=== PATIENT | female | born 1990 | race Caucasian/White ===

== ENCOUNTER 2018-01-21 05:50 | Inpatient (IN) ==
[2018-01-21 07:27] LABS: Baso % (Auto) 0.2 % (0.0-2.0); Eos # (Auto) 0.1 th/mm3 (0.0-0.4); Eos % (Auto) 1.1 % (0.0-4.0); Hematocrit 34.8 % (35.0-46.0); Hemoglobin 12.2 gm/dL (11.6-15.3); Lymph # (Auto) 1.5 th/mm3 (1.0-4.8); Lymph % (Auto) 18.9 % (9.0-44.0); Mean Corpuscular HGB Conc 35.1 % (32.0-36.0); Mean Corpuscular Hemoglobin 31.9 pg (27.0-34.0); Mean Corpuscular Volume 90.9 fL (80.0-100.0); Mean Platelet Volume 8.2 fL (7.0-11.0); Mono # (Auto) 0.9 th/mm3 (0.0-0.9); Mono % (Auto) 10.8 % (0.0-8.0); Neut # (Auto) 5.6 th/mm3 (1.8-7.7); Platelet Count 200 th/mm3 (150-450); Red Blood Count 3.83 mil/mm3 (4.00-5.30); White Blood Count 8.1 th/mm3 (4.0-11.0)
[2018-01-21 07:34] LABS: Bacteria,Urine Occasional /hpf; Bilirubin,Urine Negative (Negative); Clarity,Urine Hazy (Clear); Color,Urine Yellow (Yellw/Straw); Glucose,Urine (UA) Negative (Negative); Leukocyte Esterase,Urine Negative (Negative); Mucus,Urine Few /lpf (Occasional); Nitrite,Urine Negative (Negative); Specific Gravity,Urine 1.017 (1.002-1.035); Squamous Epithelial Cell,Urine 1 /hpf (0-5); Urobilinogen,Urine 4 or Greater mg/dL (Less than 2)
[2018-01-21 07:57] LABS: Amphetamine Urine With Conf Neg (Neg); Benzodiazepine Urine With Conf Neg (Neg)
[2018-01-21] MEDS ORDERED: Naloxone Inj 0.4 MG/ML Vial IV.PUSH PRN (08:07)
[2018-01-21] MEDS ORDERED: fentaNYL Citrate Inj 100 MCG/2 ML Ampul IV.PUSH PRN ×2 (08:07)
[2018-01-21] MEDS ORDERED: Sod Chloride 0.9% Inj 1,000 ML IV.CONT PRN (08:07)
[2018-01-21] MEDS ORDERED: Sodium Chlor 0.9% Inj 500 ML IV.SIG PRN (08:07)
[2018-01-21] MEDS ORDERED: Citric Acid/Sodium Citrate Liq 30 ML UDC PO SCH (08:15)
[2018-01-21] MEDS ORDERED: Oxytocin 30 Units/500ml Premix 30 UNITS/500 ML BAG IV.SIG ONE (09:00)
--- NOTE | 2018-01-21 10:36 | P.HPOB ---
History of Present Illness Primary Care Physician: Jasmin Clark MD History of Present Illness: Patient is a 28-year-old G 2 P 0 at 41/0 who presents today for induction for postdates. She states she has had normal movement. Denies nausea, vomiting, fever, chills, abdominal pain, shortness of breath, changes in vision , headache, lightheadedness, dizziness, dysuria, hematuria, frequency, change in urine color/smell, change in bowel habits, large gushes of fluid. Notes some minor whitish discharge, normal for . No bloody discharge, abnormally colored or malodorous discharge. No other complaints today. History OB: Previous ectopic, denies current palpitations Medical: Asthma Surgical: Denies Family Father: Denies Mother: Denies Social EtOH: Denies Tobacco: Denies Drugs: Denies - Inpatient Certification I certify that the inpatient services were ordered in accordance with Medicare regulations governing the order. This includes certification that hospital inpatient services are reasonable and necessary and in the case of services not specified as inpatient-only under 42 CFR 419.22(n), that they are appropriately provided as inpatient services in accordance to with the 2-midnight benchmark under 43 CFR 412.3(e) Estimated Total Length of Stay (Days): 3 Plans for Post Hospital Care: Home Review of Systems Constitutional: Denies body ache(s), Denies chills, Denies weakness Eyes: Denies blind spots, Denies blurry vision, Denies bulging eyes, Denies change in vision, Denies itchy eyes Ears, Nose, Mouth, and Throat: Denies dizziness, Denies poor balance Cardiovascular: Denies chest pain, Denies lightheadedness, Denies shortness of breath, Denies slow heart rate Respiratory: Denies cough, Denies shortness of breath, Denies stridor, Denies wheezing Gastrointestinal: Denies change in bowel habits, Denies change in stools, Denies nausea, Denies vomiting Genitourinary: Denies abnormal vaginal bleeding, Denies painful urination, Denies vaginal discharge, Denies vaginal odor, Denies vaginal itching Musculoskeletal: Denies abnormal walking, Denies muscle weakness Skin/Breast: Denies skin ulcer, Denies sores Neurologic: Denies abnormal movements, Denies behavioral changes, Denies confusion, Denies headache(s) Psychiatric: Denies anxiety, Denies confusion, Denies depression Endocrine: Denies cold intolerance, Denies excessive sweating PMFSH - Travel History Recent Travel in the [place] Within the Last 8 Weeks: No Recent Travel Out of the Country Within the Last 8 Weeks: No - Immunization History Hx Influenza Vaccine This Season: No Medications and Allergies Active Medications: Active Medications Citric Acid/Sodium Citrate (Sodium Citrate/Citric Acid Liq) 30 ml PO PHLEBOTOMY PROGRAM COORDINATOR [facility] Stop: 01/25/18 08:14 Fentanyl Citrate (Fentanyl Inj) 100 mcg IV.PUSH Q1H PRN PRN Reason: PAIN SCALE 6 TO 10 Fentanyl Citrate (Fentanyl Inj) 50 mcg IV.PUSH Q1H PRN PRN Reason: Pain Scale 3 - 5 Lactated Ringer's (Lr 1000 Ml Inj) 1,000 mls @ 125 mls/hr IV.CONT .Q8H [facility] Last Admin: 01/21/18 07:05 Dose: 125 mls/hr Lactated Ringer's (Lr 1000 Ml Inj) 1,000 mls @ 3,000 mls/hr IV.SIG UNSCH PRN PRN Reason: compromise or epidural Sodium Chloride (Ns Inj) 500 mls @ 1,000 mls/hr IV.SIG UNSCH PRN PRN Reason: SEE LABEL COMMENTS Sodium Chloride (Ns Inj) 1,000 mls @ 100 mls/hr IV.CONT .Q10H PRN PRN Reason: SEE LABEL COMMENTS Lidocaine HCl (Xylocaine 1% Inj) 0.1 ml I-DERMAL PRN PRN PRN Reason: For IV start Stop: 01/24/18 08:06 Lidocaine HCl (Xylocaine 1% Inj) 10 ml INFILTRATN PRN PRN PRN Reason: For episiotomy repair Stop: 01/23/18 08:06 Mineral Oil (Muri-Lube Oil) 10 ml TOPICAL UNSCH PRN PRN Reason: PRN perineal massage Misoprostol (Cytotec) 25 mcg VAGINAL ONCE PRN PRN Reason: For cervical ripening Stop: 01/22/18 13:50 Naloxone HCl (Narcan Inj) 0.1 mg IV.PUSH Q2M PRN PRN Reason: for opiate reversal Allergies Allergy/AdvReac Type Severity Reaction Status Date / Time No Known Allergies Allergy Verified 12/31/17 21:55 Home Medications Medication Instructions Recorded Confirmed Type vit,[id number] 1 tab PO DAILY 01/21/18 01/21/18 History [PNV 29-1] Exam Vital signs: Vital Signs 01/21/18 06:30 01/21/18 08:16 01/21/18 09:16 Temperature 98.4 F Pulse Rate 68 56 L 52 L Respiratory Rate 18 Blood Pressure 118/70 120/71 114/63 01/21/18 10:01 Temperature Pulse Rate 52 L Respiratory Rate Blood Pressure 113/66 Intake & Output 01/20/18 01/21/18 01/21/18 18:59 06:59 18:59 Weight 89.811 kg Other: Weight On Admission 89.811 kg Narrative: GENERAL: Well-nourished, well-developed patient. SKIN: Warm and dry. HEAD: Normocephalic and atraumatic. EYES: No scleral icterus. No injection or drainage. ENT: No nasal drainage noted. Mucous membranes pink. Airway patent. NECK: Supple, trachea midline. No JVD. CARDIOVASCULAR: Regular rate and rhythm without murmurs, gallops, or rubs. RESPIRATORY: Breath sounds equal bilaterally. No accessory muscle use. ABDOMEN/GI: Abdomen soft, non-tender, bowel sounds present, no rebound, no guarding GENITOURINARY: Cervix: Posterior Dilatation: 1-2 Effacement: 70 Station: -2 Presentation: Vertex Membranes: Intact Uterine Contractions: Rare FHT's: Category: 1 Baseline: 140 Reactive: Yes Variability: Moderate Decels: None EXTREMITIES: No cyanosis or edema. BACK: Nontender without obvious deformity. No CVA tenderness. NEUROLOGICAL: Awake and alert. Motor and sensory grossly within normal limits. Five out of 5 muscle strength in all muscle groups. Normal speech. Results - Labs CBC & Chem 7: 01/21/18 07:05 Labs: Laboratory Results - last 24 hr 01/21/18 01/21/18 01/21/18 06:10 06:10 07:05 WBC 8.1 RBC 3.83 L Hgb 12.2 Hct 34.8 L MCV 90.9 MCH 31.9 MCHC 35.1 RDW 13.0 Plt Count 200 MPV 8.2 Neut % (Auto) 69.0 Lymph % (Auto) 18.9 [place] % (Auto) 10.8 H Eos % (Auto) 1.1 Baso % (Auto) 0.2 Neut # (Auto) 5.6 Lymph # (Auto) 1.5 [place] # (Auto) 0.9 Eos # (Auto) 0.1 Baso # (Auto) 0.0 WBC Differential . Differential Comment Auto diff final Urine Color Yellow Urine Clarity Hazy H Urine pH 6.0 Ur Specific [place] 1.017 Urine Protein Negative Urine Glucose (UA) Negative Urine Ketones Negative Urine Occult Blood Negative Urine Nitrate Negative Urine Bilirubin Negative Urine Urobilinogen 4 or greater Ur Leukocyte Esterase Negative Urine RBC 1 Urine WBC 8 H Ur Squamous Epith Cells 1 Urine Bacteria Occasional H Urine Mucus Few H Micro UA Comment Culture not ind Ur Microscopic Review Not Reportable Urine Culture Comments Culture not ind Urine Opiates Screen Neg Ur Barbiturates Screen Neg Ur Amphetamine Screen Neg U Benzodiazepines Scrn Neg Urine Cocaine Screen Neg U Cannabinoids Screen Neg Blood Type Blood Type Recheck Band and Hold 01/21/18 07:05 WBC RBC Hgb Hct MCV MCH MCHC RDW Plt Count MPV Neut % (Auto) Lymph % (Auto) [place] % (Auto) Eos % (Auto) Baso % (Auto) Neut # (Auto) Lymph # (Auto) [place] # (Auto) Eos # (Auto) Baso # (Auto) WBC Differential Differential Comment Urine Color Urine Clarity Urine pH Ur Specific [place] Urine Protein Urine Glucose (UA) Urine Ketones Urine Occult Blood Urine Nitrate Urine Bilirubin Urine Urobilinogen Ur Leukocyte Esterase Urine RBC Urine WBC Ur Squamous Epith Cells Urine Bacteria Urine Mucus Micro UA Comment Ur Microscopic Review Urine Culture Comments Urine Opiates Screen Ur Barbiturates Screen Ur Amphetamine Screen U Benzodiazepines Scrn Urine Cocaine Screen U Cannabinoids Screen Blood Type O Positive Blood Type Recheck Required Band and Hold Caprini VTE Risk Assessment Caprini VTE Risk Assessment: No/Low Risk (score <= 1) Caprini Risk Assessment Model: Point Value = 1 Point Value = 2 Point Value = 3 Point Value = 5 Age 41-60 Minor surgery BMI > 25 kg/m2 Swollen legs Varicose veins or History of unexplained or recurrent spontaneous Oral contraceptives or hormone replacement Sepsis (< 1 month) Serious lung disease, including pneumonia (< 1 month) Abnormal pulmonary function Acute myocardial infarction Congestive heart failure (< 1 month) History of inflammatory bowel disease Medical patient at bed rest Age 61-74 Arthroscopic surgery Major open surgery (> 45 min) Laparoscopic surgery (> 45 min) Malignancy Confined to bed (> 72 hours) Immobilizing plaster cast Central venous access Age >= 75 History of VTE Family history of VTE Factor V Leiden Prothrombin [id number] Lupus anticoagulant Anticardiolipin antibodies Elevated serum homocysteine Heparin-induced thrombocytopenia Other congenital or acquired thrombophilia Stroke (< 1 month) Elective arthroplasty Hip, pelvis, or leg fracture Acute spinal cord injury (< 1 month) Prophylaxis Regimen: Total Risk Factor Score Risk Level Prophylaxis Regimen 0-1 Low Early ambulation 2 Moderate Order ONE of the following: *Sequential Compression Device (SCD) *Heparin 5000 units SQ BID 3-4 Higher Order ONE of the following medications: *Heparin 5000 units SQ TID *Enoxaparin/Lovenox 40 mg SQ daily (WT < 150 kg, CrCl > 30 mL/min) *Enoxaparin/Lovenox 30 mg SQ daily (WT < 150 kg, CrCl > 10-29 mL/min) *Enoxaparin/Lovenox 30 mg SQ BID (WT < 150 kg, CrCl > 30 mL/min) AND/OR *Sequential Compression Device (SCD) 5 or more Highest Order ONE of the following medications: *Heparin 5000 units SQ TID (Preferred with Epidurals) *Enoxaparin/Lovenox 40 mg SQ daily (WT < 150 kg, CrCl > 30 mL/min) *Enoxaparin/Lovenox 30 mg SQ daily (WT < 150 kg, CrCl > 10-29 mL/min) *Enoxaparin/Lovenox 30 mg SQ BID (WT < 150 kg, CrCl > 30 mL/min) AND *Sequential Compression Device (SCD) Assessment and Plan - Diagnosis (1) 41 weeks gestation of Code(s): Z3A.41 - 41 weeks gestation of Status: Acute (2) Post-dates Code(s): O48.0 - Post-term Status: Acute - Plan 28-year-old at 41/0 presenting today for induction of labor due to postdates. -FHT category 1, reassuring -Cytotec every 4 hrs as needed -Expectant management D/W Dr. Saucedo
[2018-01-22] MEDS ORDERED: fentaNYL 2MCG-Bupiv 0.125% Epi 150 ML EPIDURAL ONE (05:32)
[2018-01-22] MEDS ORDERED: Lidocaine PF 1% Inj 5 ML Vial ONE (05:38)
[2018-01-22] MEDS ORDERED: Lidocaaine 1.5%/Epinephrine 1:200,000 PF Inj 5 ML Amp ONE (05:38)
[2018-01-22] MEDS ORDERED: fentaNYL 2MCG-Bupiv 0.125% Epi 150 ML EPIDURAL PRN (06:07)
[2018-01-22] MEDS ORDERED: fentaNYL Citrate Inj 100 MCG/2 ML Ampul EPIDURAL ONE (06:07)
[2018-01-22] MEDS ORDERED: Morphine Sulfate PF Inj 5 MG/10 ML Ampul ONE (06:15)
[2018-01-22] MEDS ORDERED: Oxytocin 30 Units/500ml Premix 30 UNITS/500 ML BAG IV.SIG ONE (07:12)
[2018-01-22] MEDS ORDERED: Acetaminophen 325 MG Tablet PO PRN (07:12)
--- NOTE | 2018-01-22 07:25 | P.OP ---
- Preoperative Diagnosis (1) Post-dates (2) Non-reassuring heart rate or rhythm affecting management of mother (3) Meconium in amniotic fluid affecting management of mother - Postoperative Diagnosis (1) Non-reassuring heart rate or rhythm affecting management of mother (2) Meconium in amniotic fluid affecting management of mother (3) Post-dates Date of procedure: 01/22/18 Procedure: Primary low transverse section Anesthesia: regional Surgeon: Liam Saucedo MD Estimated blood loss (mL): 500 IV fluids (mL): 1,000 Urine output (mL): 100 Pathology: other (Placenta sent to pathology) Operation and Findings: Postdates primiparous patient with Cytotec and induction after rupture of the membranes and internal monitors placed the fetus exhibited a nonreassuring heart rate tracing with tachycardia and minimal heart rate variability and at that time rupture membranes light to moderate meconium- stained fluid noted. It was felt that the combination of the category 2 strip as well as the meconium stained fluid at this fetus was not going to tolerate labor especially with the patient cervix only being 1-2 cm dilated. It is felt that she needed a section for delivery. Patient was taken operating room placed in supine position operative table after adequate epidural anesthesia was administered she was prepped and draped for abdominal surgery. A Pfannenstiel incision was made lower abdomen carried to fascia sharply the fascia incised laterally and then reflected off the rectus muscle. The peritoneal cavity was entered sharply at that time. And the incision in that peritoneum was extended superiorly and inferiorly. The bladder blade placed lower edge of the incision the visceral peritoneum reflected off the lower uterine segment and the bladder was reflected down in the placed behind the bladder blade. A transverse hysterotomy was made extended bluntly bilaterally and meconium stained fluid noted at that time. A male infant was delivered at 6:35 AM Apgars 4/8 cord gas pH 7.15 weight of baby 3845 gm . Baby was handed to waiting staff and. The cord gas was obtained as above cord blood was obtained and the placenta manually extracted without difficulty. The placenta then sent to pathology. The uterus was exteriorized and then cleaned of all remnants of membranes. The hysterotomy closed in a running layer of 0 chromic followed by imbricating suture of the same and hemostasis was achieved with that layer. The bladder was reapproximated using a running layer Vicryl. The uterus elevated ovaries and tubes noted to be normal, the blood was suctioned the cul-de-sac gutters and the uterus replaced the peritoneal cavity. The parietal peritoneum was closed running layer of 2-0 Vicryl. Muscle reapproximated with stick ties of chromic. And the fascia then closed in a running layer of 0 Vicryl. The space in the subcutaneous fat was closed in a running layer of 0 plain catgut and the skin then closed with 3-0 Monocryl subcuticular stitch. Pressure dressing applied. Estimate blood loss 500 cc. Sponge and needle correct x2 the patient taken to recovery in stable condition.
[2018-01-22 07:33] LABS: Cord Arterial Blood HCO3 20.9
[2018-01-22] MEDS ORDERED: Oxytocin 30 Units/500ml Premix 30 UNITS/500 ML BAG ONE (08:44)
[2018-01-22] MEDS ORDERED: Naloxone Inj 0.4 MG/ML Vial IV.PUSH PRN (10:07)
[2018-01-22] MEDS ORDERED: Oxytocin 30 Units/500ml Premix 30 UNITS/500 ML BAG IV.SIG PRN (12:12)
[2018-01-22] MEDS ORDERED: Zolpidem Tartrate 5 MG Tablet PO PRN (21:00)
[2018-01-23 05:54] LABS: Baso % (Auto) 0.1 % (0.0-2.0); Eos # (Auto) 0.1 th/mm3 (0.0-0.4); Eos % (Auto) 0.6 % (0.0-4.0); Hematocrit 25.3 % (35.0-46.0); Hemoglobin 8.8 gm/dL (11.6-15.3); Lymph # (Auto) 1.6 th/mm3 (1.0-4.8); Mean Corpuscular HGB Conc 34.8 % (32.0-36.0); Mean Corpuscular Hemoglobin 31.7 pg (27.0-34.0); Mean Corpuscular Volume 91.2 fL (80.0-100.0); Mean Platelet Volume 8.2 fL (7.0-11.0); Mono # (Auto) 1.3 th/mm3 (0.0-0.9); Mono % (Auto) 8.7 % (0.0-8.0); Neut % (Auto) 79.6 % (16.0-70.0); Platelet Count 162 th/mm3 (150-450); Red Blood Count 2.78 mil/mm3 (4.00-5.30)
--- NOTE | 2018-01-23 08:49 | P.PNOB ---
Subjective Post op day: 1 Interval history: Postoperative day #1 AFVSS overnight. Incision not draining. Decreased lochia. Denies dysuria. No breast tenderness. Appetite good. No nausea or vomiting. Negative flatus/bowel movement. Ambulating well. Denies calf pain or shortness of breath. Otherwise, she is doing well this morning and has no other complaints. Objective Vital Signs/I&O: Vital Signs 01/22/18 08:48 01/22/18 09:20 01/22/18 14:20 Temperature 97.6 F 98.1 F Pulse Rate 81 52 L Respiratory Rate Blood Pressure 101/56 L 111/66 01/22/18 20:23 01/22/18 23:46 01/23/18 04:05 Temperature 98.4 F 98.3 F 97.6 F Pulse Rate 81 83 78 Respiratory Rate 18 Blood Pressure 97/67 L 91/56 L 87/59 L 01/23/18 08:05 Temperature 98.9 F Pulse Rate 84 Respiratory Rate 16 Blood Pressure 96/60 L Intake & Output 01/22/18 01/23/18 01/23/18 18:59 06:59 18:59 Intake Total 2099 / 2099 Balance 2099 / 2099 Intake: IV 2099 / 2099 LR 1000 mL Inj 1,000 ML @ 100 1600 / 1600 mls/hr IV.CONT .Q10H [facility] Rx#: [id number] Pitocin 30 Units/NS 500 ml 500 / 500 Premix 30 units In 500 ml @ 100 mls/hr IV.SIG ONCE ONE Rx#: [id number] Result Diagrams: 01/23/18 05:35 Objective Remarks: GENERAL: Well-nourished, well-developed patient. CARDIOVASCULAR: Regular rate and rhythm without murmurs, gallops, or rubs. RESPIRATORY: Breath sounds equal bilaterally. No accessory muscle use. ABDOMEN/GI: Abdomen soft, non-tender, bowel sounds present. Incision: Clean, dry and intact. Fundus: Firm, non-tender at umbilicus. GENITOURINARY: Light to moderate bleeding. EXTREMITIES: No cyanosis or edema, non-tender, without signs of DVT. Medications and IVs: Active Medications Acetaminophen (Tylenol) 650 mg PO Q6H PRN PRN Reason: PAIN SCALE 1 TO 2 Citric Acid/Sodium Citrate (Sodium Citrate/Citric Acid Liq) 30 ml PO HEAT TREATER HELPER [facility] Stop: 01/25/18 08:14 Diphenhydramine HCl (Benadryl) 50 mg PO Q6H PRN PRN Reason: MILD TO MODERATE ITCHING Stop: 01/23/18 10:06 Diphenhydramine HCl (Benadryl Inj) 25 mg IV.PUSH Q6H PRN PRN Reason: MILD TO MODERATE ITCHING Stop: 01/23/18 10:06 Diphtheria/Pertussis/Tetanus Vacc (Boostrix Vaccine Inj) 0.5 ml IM .ONCE ONE Stop: 01/23/18 16:01 Fentanyl Citrate (Fentanyl Inj) 100 mcg IV.PUSH Q1H PRN PRN Reason: PAIN SCALE 6 TO 10 Fentanyl Citrate (Fentanyl Inj) 50 mcg IV.PUSH Q1H PRN PRN Reason: Pain Scale 3 - 5 Lactated Ringer's (Lr 1000 Ml Inj) 1,000 mls @ 125 mls/hr IV.CONT .Q8H [facility] Last Admin: 01/23/18 03:15 Dose: Not Given Lactated Ringer's (Lr 1000 Ml Inj) 1,000 mls @ 3,000 mls/hr IV.SIG UNSCH PRN PRN Reason: compromise or epidural Sodium Chloride (Ns Inj) 500 mls @ 1,000 mls/hr IV.SIG UNSCH PRN PRN Reason: SEE LABEL COMMENTS Sodium Chloride (Ns Inj) 1,000 mls @ 100 mls/hr IV.CONT .Q10H PRN PRN Reason: SEE LABEL COMMENTS Fentanyl/Bupivacaine/Sodium Chlor (Fentanyl 2 Mcg-Bupiv 0.125% Epi) 150 mls @ 12 mls/hr EPIDURAL PRN PRN PRN Reason: for Labor Pain Oxytocin (Pitocin 30 Units/Ns 500 Ml Premix) 30 units in 500 mls @ 100 mls/hr IV.SIG UNSCH PRN PRN Reason: Heavy bleeding Ibuprofen (Motrin) 800 mg PO Q8H PRN PRN Reason: cramping Ketorolac Tromethamine (Toradol Inj) 30 mg IM Q6H PRN PRN Reason: SEE LABEL COMMENTS Lidocaine HCl (Xylocaine 1% Inj) 0.1 ml I-DERMAL PRN PRN PRN Reason: For IV start Stop: 01/24/18 08:06 Measles/Mumps/Rubella Vaccine Live (M-M-R Ii Vaccine Inj) 0.5 ml SQ .ONCE ONE Stop: 01/23/18 16:01 Mineral Oil (Muri-Lube Oil) 10 ml TOPICAL UNSCH PRN PRN Reason: PRN perineal massage Miscellaneous Information ([facility] [place] Nursing Information) 1 each OTHER UNSCH PRN PRN Reason: SEE LABEL COMMENTS Stop: 01/23/18 10:06 Miscellaneous Information ([facility] [place] Nursing Information) 1 each OTHER UNSCH PRN PRN Reason: SEE LABEL COMMENTS Stop: 01/23/18 10:06 Naloxone HCl (Narcan Inj) 0.1 mg IV.PUSH Q2M PRN PRN Reason: for opiate reversal Naloxone HCl (Narcan Inj) 0.4 mg IV.PUSH UNSCH PRN PRN Reason: SEE LABEL COMMENTS Stop: 01/23/18 10:06 Oxycodone/Acetaminophen (Percocet 5/325 Mg) 1 tab PO Q4H PRN PRN Reason: PAIN SCALE 3 TO 5 Oxycodone/Acetaminophen (Percocet 5/325 Mg) 2 tab PO Q4H PRN PRN Reason: PAIN SCALE 6 TO 10 Last Admin: 01/23/18 06:21 Dose: 2 tab Senna/Docusate Sodium (Jaycee-Colace) 2 tab PO Q12H PRN PRN Reason: CONSTIPATION Sodium Chloride (Ns Flush) 2 ml IV.FLUSH PRN PRN PRN Reason: FLUSH AFTER USING IV ACCESS Sodium Chloride (Ns Flush) 2 ml IV.FLUSH BID [facility] Last Admin: 01/23/18 03:14 Dose: 2 ml Zolpidem Tartrate (Ambien) 5 mg PO HS PRN PRN Reason: INSOMNIA Assessment and Plan - Diagnosis (1) 41 weeks gestation of Code(s): Z3A.41 - 41 weeks gestation of Status: Acute (2) Post-dates Code(s): O48.0 - Post-term Status: Acute - Plan 28y/o female who is POD#1 s/p CXN. -Continue routine care. -Percocet and Motrin PRN pain. -Encouraged OOB. Advised pelvic rest for 6 wks. Will need a f/u appt. in 1 wk for incision check. -Re: ctrl, she states she does not wish to go back on control, discussed risks and benefits of following delivery, patient expressed understanding. -D/c likely tomorrow wdw Dr. Clark
[2018-01-23] MEDS ORDERED: Measles/Mumps/Rubella Vaccine Inj 0.5 ML Vial SQ ONE (16:00)
[2018-01-23] MEDS ORDERED: Diphtheria/Tetanus/Pertussis Vaccine Inj 0.5 ML Syringe IM ONE (16:00)
[2018-01-23] MEDS: Senna/Docusate Sodium 8.6/50 MG Tablet PO PRN (20:02)
--- NOTE | 2018-01-24 09:52 | P.PNOB ---
Subjective Post op day: 2 Interval history: Ms Mcgowan had no acute events overnight. She is now POD#2. Her pain is controlled , but she has had no flatus or BM yet. She is urinating, ambulating and tolerating PO well. She has had 3 doses of randy-colace thus far. Lochia is about the same as a period with no clots. There is no report of drainage from her surgical wound. Pt is working to breastfeed and is deferring decision on contraception until after discharge from the hospital. ROS was negative. All of pt's questions were answered. Objective Vital Signs/I&O: Vital Signs 01/23/18 20:00 01/24/18 06:46 Temperature 98.3 F 98.1 F Pulse Rate 73 70 Respiratory Rate 18 16 Blood Pressure 106/59 L 115/76 Result Diagrams: 01/23/18 05:35 Objective Remarks: GENERAL: Well-nourished, well-developed patient in NAD. CARDIOVASCULAR: Regular rate and rhythm without murmurs, gallops, or rubs. RESPIRATORY: Breath sounds equal bilaterally. No accessory muscle use. ABDOMEN/GI: Abdomen soft, non-tender, bowel sounds present. Incision: Clean, dry and intact with dressing in place; dressing to be removed today. Fundus: Firm, non-tender at umbilicus. GENITOURINARY: Light to moderate bleeding. EXTREMITIES: No cyanosis or edema, non-tender, without signs of DVT. Medications and IVs: Active Medications Acetaminophen (Tylenol) 650 mg PO Q6H PRN PRN Reason: PAIN SCALE 1 TO 2 Citric Acid/Sodium Citrate (Sodium Citrate/Citric Acid Liq) 30 ml PO LINING STITCHER [facility] Stop: 01/25/18 08:14 Fentanyl Citrate (Fentanyl Inj) 100 mcg IV.PUSH Q1H PRN PRN Reason: PAIN SCALE 6 TO 10 Fentanyl Citrate (Fentanyl Inj) 50 mcg IV.PUSH Q1H PRN PRN Reason: Pain Scale 3 - 5 Lactated Ringer's (Lr 1000 Ml Inj) 1,000 mls @ 125 mls/hr IV.CONT .Q8H [facility] Last Admin: 01/23/18 03:15 Dose: Not Given Lactated Ringer's (Lr 1000 Ml Inj) 1,000 mls @ 3,000 mls/hr IV.SIG UNSCH PRN PRN Reason: compromise or epidural Sodium Chloride (Ns Inj) 500 mls @ 1,000 mls/hr IV.SIG UNSCH PRN PRN Reason: SEE LABEL COMMENTS Sodium Chloride (Ns Inj) 1,000 mls @ 100 mls/hr IV.CONT .Q10H PRN PRN Reason: SEE LABEL COMMENTS Fentanyl/Bupivacaine/Sodium Chlor (Fentanyl 2 Mcg-Bupiv 0.125% Epi) 150 mls @ 12 mls/hr EPIDURAL PRN PRN PRN Reason: for Labor Pain Oxytocin (Pitocin 30 Units/Ns 500 Ml Premix) 30 units in 500 mls @ 100 mls/hr IV.SIG UNSCH PRN PRN Reason: Heavy bleeding Ibuprofen (Motrin) 800 mg PO Q8H PRN PRN Reason: cramping Last Admin: 01/24/18 05:51 Dose: 800 mg Ketorolac Tromethamine (Toradol Inj) 30 mg IM Q6H PRN PRN Reason: SEE LABEL COMMENTS Mineral Oil (Muri-Lube Oil) 10 ml TOPICAL UNSCH PRN PRN Reason: PRN perineal massage Naloxone HCl (Narcan Inj) 0.1 mg IV.PUSH Q2M PRN PRN Reason: for opiate reversal Oxycodone/Acetaminophen (Percocet 5/325 Mg) 1 tab PO Q4H PRN PRN Reason: PAIN SCALE 3 TO 5 Oxycodone/Acetaminophen (Percocet 5/325 Mg) 2 tab PO Q4H PRN PRN Reason: PAIN SCALE 6 TO 10 Last Admin: 01/24/18 05:51 Dose: 2 tab Senna/Docusate Sodium (Randy-Colace) 2 tab PO Q12H PRN PRN Reason: CONSTIPATION Last Admin: 01/23/18 20:02 Dose: 2 tab Sodium Chloride (Ns Flush) 2 ml IV.FLUSH PRN PRN PRN Reason: FLUSH AFTER USING IV ACCESS Sodium Chloride (Ns Flush) 2 ml IV.FLUSH BID [facility] Last Admin: 01/23/18 20:05 Dose: 2 ml Zolpidem Tartrate (Ambien) 5 mg PO HS PRN PRN Reason: INSOMNIA Assessment and Plan - Diagnosis (1) 41 weeks gestation of Code(s): Z3A.41 - 41 weeks gestation of Status: Acute (2) Post-dates Code(s): O48.0 - Post-term Status: Acute - Plan 28y/o female who delivered at 41.0 weeks who is POD#2 s/p is progressing well with exception of no flatus or stooling yet. Physical exam is benign with AFVSS. 1. POD#2 from -Continue routine care. -Percocet and Motrin PRN pain. Advised pt to stay on top of pain control. -Encouraged OOB/ambulation. Advised pelvic rest for 6 wks. Will need a f/u appt. in 1 wk for incision check. Advised showers/no baths for 1-2 weeks. -Pt plans to defer decision on contraception until she meets with her PCP -Discharge likely 01/25 2. Constipation post-op -Discussed suppository with nursing to aid in flatus/stooling -Discussed ambulation and hydration -Will continue with Pericolace BID SW Dr Rivera and DW Dr Hartmann
[2018-01-24] MEDS: Senna/Docusate Sodium 8.6/50 MG Tablet PO PRN (14:17)
--- NOTE | 2018-01-25 09:09 | P.PNOB ---
Subjective Post op day: 3 Interval history: Ms Mcgowan had no acute events overnight. She is now POD#3. Her pain is controlled , but she has had no flatus or BM yet. She is urinating, ambulating and tolerating PO well. She has only had randy-colace thus far. Decreased lochia. There is no report of drainage from her surgical wound. Pt is working to breastfeed and is deferring decision on contraception until after discharge from the hospital. ROS was negative. All of pt's questions were answered. Objective Vital Signs/I&O: Vital Signs 01/24/18 20:25 01/25/18 08:07 Temperature 98.7 F 97.9 F Pulse Rate 70 72 Respiratory Rate 16 16 Blood Pressure 108/55 L 134/74 Result Diagrams: 01/23/18 05:35 Objective Remarks: General: Alert, well appearing, in no acute distress Skin: Warm and dry HEENT: Atraumatic. Moist mucus membranes Cardiac: Regular rate and rhythm without murmur Pulmonary: No increased work of breathing. Clear to auscultation bilaterally with good air movement. Abdominal: Non-tender. uterus firm and below the umbilicus. Normal bowel sounds. Incision is clean dry and intact Extremities: 2+ pedal pulses, no edema, no calf tenderness Medications and IVs: Active Medications Acetaminophen (Tylenol) 650 mg PO Q6H PRN PRN Reason: PAIN SCALE 1 TO 2 Diphenhydramine HCl (Benadryl) 25 mg PO Q6H PRN PRN Reason: ITCHING Fentanyl Citrate (Fentanyl Inj) 100 mcg IV.PUSH Q1H PRN PRN Reason: PAIN SCALE 6 TO 10 Fentanyl Citrate (Fentanyl Inj) 50 mcg IV.PUSH Q1H PRN PRN Reason: Pain Scale 3 - 5 Lactated Ringer's (Lr 1000 Ml Inj) 1,000 mls @ 125 mls/hr IV.CONT .Q8H [facility] Last Admin: 01/23/18 03:15 Dose: Not Given Lactated Ringer's (Lr 1000 Ml Inj) 1,000 mls @ 3,000 mls/hr IV.SIG UNSCH PRN PRN Reason: compromise or epidural Sodium Chloride (Ns Inj) 500 mls @ 1,000 mls/hr IV.SIG UNSCH PRN PRN Reason: SEE LABEL COMMENTS Sodium Chloride (Ns Inj) 1,000 mls @ 100 mls/hr IV.CONT .Q10H PRN PRN Reason: SEE LABEL COMMENTS Fentanyl/Bupivacaine/Sodium Chlor (Fentanyl 2 Mcg-Bupiv 0.125% Epi) 150 mls @ 12 mls/hr EPIDURAL PRN PRN PRN Reason: for Labor Pain Oxytocin (Pitocin 30 Units/Ns 500 Ml Premix) 30 units in 500 mls @ 100 mls/hr IV.SIG UNSCH PRN PRN Reason: Heavy bleeding Ibuprofen (Motrin) 800 mg PO Q8H PRN PRN Reason: cramping Last Admin: 01/25/18 07:05 Dose: 800 mg Ketorolac Tromethamine (Toradol Inj) 30 mg IM Q6H PRN PRN Reason: SEE LABEL COMMENTS Mineral Oil (Muri-Lube Oil) 10 ml TOPICAL UNSCH PRN PRN Reason: PRN perineal massage Naloxone HCl (Narcan Inj) 0.1 mg IV.PUSH Q2M PRN PRN Reason: for opiate reversal Oxycodone/Acetaminophen (Percocet 5/325 Mg) 1 tab PO Q4H PRN PRN Reason: PAIN SCALE 3 TO 5 Oxycodone/Acetaminophen (Percocet 5/325 Mg) 2 tab PO Q4H PRN PRN Reason: PAIN SCALE 6 TO 10 Last Admin: 01/25/18 07:03 Dose: 2 tab Polyethylene Glycol (Miralax) 17 gm PO Q6H [facility] Senna/Docusate Sodium (Randy-Colace) 2 tab PO Q12H PRN PRN Reason: CONSTIPATION Last Admin: 01/24/18 14:17 Dose: 2 tab Sodium Chloride (Ns Flush) 2 ml IV.FLUSH PRN PRN PRN Reason: FLUSH AFTER USING IV ACCESS Sodium Chloride (Ns Flush) 2 ml IV.FLUSH BID [facility] Last Admin: 01/24/18 23:31 Dose: Not Given Zolpidem Tartrate (Ambien) 5 mg PO HS PRN PRN Reason: INSOMNIA Assessment and Plan - Diagnosis (1) 41 weeks gestation of Code(s): Z3A.41 - 41 weeks gestation of Status: Acute (2) Post-dates Code(s): O48.0 - Post-term Status: Acute - Plan 28y/o female who delivered at 41.0 weeks who is POD#3 s/p is progressing well with exception of no flatus or stooling yet. Physical exam is benign with AFVSS. 1. POD#3 from -Continue routine care. -Percocet and Motrin PRN pain. Advised pt to stay on top of pain control. -Encouraged OOB/ambulation. Advised pelvic rest for 6 wks. Will need a f/u appt. in 1 wk for incision check. -Pt plans to defer decision on contraception until she meets with her PCP 2. No flatus or BM post-op -Patient prefers Miralax to suppository, start Miralax [id number] -Discussed ambulation and hydration -Will continue with Pericolace BID Anticipate discharge home later today. We will hold discharge if patient does not pass gas or have a bowel movement before that time. Care was discussed with Dr. Saucedo
[2018-01-25] MEDS: Polyethylene Glycol 3350 17 GM Packet PO SCH ×4 (11:00→23:47)
--- NOTE | 2018-01-25 11:14 | P.PNOB ---
Subjective Post day: 3 Interval history: Called to see patient. Patient is s/p C/S POD #3. No flatus or BM since surgery. Now reporting nausea and vomiting. She states she vomited her breakfast. Vomiting is non bilious, non retractile. States vomited 4x today. Pain controlled with current pain meds. Objective Vital Signs/I&O: Vital Signs 01/24/18 20:25 01/25/18 08:07 Temperature 98.7 F 97.9 F Pulse Rate 70 72 Respiratory Rate 16 16 Blood Pressure 108/55 L 134/74 Result Diagrams: 01/23/18 05:35 Objective Remarks: GENERAL: Well-nourished, well-developed patient. CARDIOVASCULAR: Regular rate and rhythm without murmurs, gallops, or rubs. RESPIRATORY: Breath sounds equal bilaterally. No accessory muscle use. ABDOMEN/GI: Abdomen soft, slightly distended. hypoactive BS Fundus: Firm, non-tender at umbilicus. Incision intact. GENITOURINARY: Light to moderate bleeding. EXTREMITIES: No cyanosis or edema, non-tender, without signs of DVT. Medications and IVs: Active Medications Acetaminophen (Tylenol) 650 mg PO Q6H PRN PRN Reason: PAIN SCALE 1 TO 2 Diphenhydramine HCl (Benadryl) 25 mg PO Q6H PRN PRN Reason: ITCHING Fentanyl Citrate (Fentanyl Inj) 100 mcg IV.PUSH Q1H PRN PRN Reason: PAIN SCALE 6 TO 10 Fentanyl Citrate (Fentanyl Inj) 50 mcg IV.PUSH Q1H PRN PRN Reason: Pain Scale 3 - 5 Lactated Ringer's (Lr 1000 Ml Inj) 1,000 mls @ 125 mls/hr IV.CONT .Q8H [facility] Last Admin: 01/23/18 03:15 Dose: Not Given Lactated Ringer's (Lr 1000 Ml Inj) 1,000 mls @ 3,000 mls/hr IV.SIG UNSCH PRN PRN Reason: compromise or epidural Sodium Chloride (Ns Inj) 500 mls @ 1,000 mls/hr IV.SIG UNSCH PRN PRN Reason: SEE LABEL COMMENTS Sodium Chloride (Ns Inj) 1,000 mls @ 100 mls/hr IV.CONT .Q10H PRN PRN Reason: SEE LABEL COMMENTS Fentanyl/Bupivacaine/Sodium Chlor (Fentanyl 2 Mcg-Bupiv 0.125% Epi) 150 mls @ 12 mls/hr EPIDURAL PRN PRN PRN Reason: for Labor Pain Oxytocin (Pitocin 30 Units/Ns 500 Ml Premix) 30 units in 500 mls @ 100 mls/hr IV.SIG UNSCH PRN PRN Reason: Heavy bleeding Ibuprofen (Motrin) 800 mg PO Q8H PRN PRN Reason: cramping Last Admin: 01/25/18 07:05 Dose: 800 mg Ketorolac Tromethamine (Toradol Inj) 30 mg IM Q6H PRN PRN Reason: SEE LABEL COMMENTS Mineral Oil (Muri-Lube Oil) 10 ml TOPICAL UNSCH PRN PRN Reason: PRN perineal massage Naloxone HCl (Narcan Inj) 0.1 mg IV.PUSH Q2M PRN PRN Reason: for opiate reversal Oxycodone/Acetaminophen (Percocet 5/325 Mg) 1 tab PO Q4H PRN PRN Reason: PAIN SCALE 3 TO 5 Oxycodone/Acetaminophen (Percocet 5/325 Mg) 2 tab PO Q4H PRN PRN Reason: PAIN SCALE 6 TO 10 Last Admin: 01/25/18 07:03 Dose: 2 tab Polyethylene Glycol (Miralax) 17 gm PO Q6H [facility] Stop: 01/26/18 05:01 Senna/Docusate Sodium (Jaycee-Colace) 2 tab PO Q12H PRN PRN Reason: CONSTIPATION Last Admin: 01/24/18 14:17 Dose: 2 tab Sodium Chloride (Ns Flush) 2 ml IV.FLUSH PRN PRN PRN Reason: FLUSH AFTER USING IV ACCESS Sodium Chloride (Ns Flush) 2 ml IV.FLUSH BID [facility] Last Admin: 01/24/18 23:31 Dose: Not Given Zolpidem Tartrate (Ambien) 5 mg PO HS PRN PRN Reason: INSOMNIA Assessment and Plan - Diagnosis (1) Nausea and vomiting Code(s): R11.2 - Nausea with vomiting, unspecified Status: Acute Plan: r/o ileus. Book plain MISAEL Hendrix ODT/ Mylicon ordered. - Plan 28y/o female who delivered at 41.0 weeks who is POD#3 s/p is progressing well with exception of no flatus or stooling yet. Physical exam is benign with AFVSS. 1. POD#3 from -Continue routine care. -Percocet and Motrin PRN pain. Advised pt to stay on top of pain control. -Encouraged OOB/ambulation. Advised pelvic rest for 6 wks. Will need a f/u appt. in 1 wk for incision check. -Pt plans to defer decision on contraception until she meets with her PCP 2. No flatus or BM post-op -Patient prefers Miralax to suppository, start Miralax [id number] -Discussed ambulation and hydration -Will continue with Pericolace BID Anticipate discharge home later today. We will hold discharge if patient does not pass gas or have a bowel movement before that time. Care was discussed with Dr. Saucedo (1) Nausea and vomiting Qualifiers: Vomiting type: unspecified Vomiting Intractability: non-intractable Qualified Code(s): R11.2 - Nausea with vomiting, unspecified
[2018-01-25] MEDS: Simethicone 80 MG Chew Tablet PO PRN ×2 (12:04→19:57)
--- NOTE | 2018-01-25 12:05 | XR ---
EXAM DATE: 01/25/2018 12:00 PM EDT AGE/SEX: 28 years / Female INDICATIONS: Distention. Rule out ileus versus bowel obstruction. CLINICAL DATA: This is the patient's initial encounter. Patient reports that signs and symptoms have been present for 4 - 6 days and indicates a pain score of 8/10. MEDICAL/SURGICAL HISTORY: None. None. COMPARISON: No prior exams available for comparison. FINDINGS: Supine and upright views of the abdomen were performed. The abdominal bowel gas pattern is normal. No air-fluid levels are seen. No abnormal masses, calcifications, or organomegaly is seen. The visualiz ed lower lungs are clear. No evidence of free intraperitoneal gas. The osseous structures are unremar kable. CONCLUSION: Negative examination. Electronically signed by: Ramiro Sinha MD 01/25/2018 12:03 PM EDT
[2018-01-25] MEDS ORDERED: HYDROmorphone PF Inj 0.5 MG/0.5 ML Syringe IV.PUSH PRN (13:28)
[2018-01-25] MEDS: Ketorolac Inj 30 MG/ML (IVP) Vial IV.PUSH PRN ×2 (14:24→19:58)
[2018-01-25] MEDS ORDERED: Bisacodyl 10 MG Supp RECTAL ONE (16:49)
[2018-01-26] MEDS: Ketorolac Inj 30 MG/ML (IVP) Vial IV.PUSH PRN (02:09)
[2018-01-26] MEDS: Polyethylene Glycol 3350 17 GM Packet PO SCH (06:39)
[2018-01-26] MEDS: Senna/Docusate Sodium 8.6/50 MG Tablet PO PRN (08:28)
--- NOTE | 2018-01-26 08:44 | P.PNOB ---
Subjective Post day: 4 Interval history: Postoperative day #4 Afebrile with stable vitals overnight. Incision not draining. Decreased lochia. Denies dysuria. She had emesis x4 yesterday and was not tolerating PO. She required IV pain medicine and fluids because of this. She had her first small bowel movement yesterday and is tolerating PO Miralax this morning. No nausea this morning. Ambulating well. Denies calf pain or shortness of breath. Objective Vital Signs/I&O: Vital Signs 01/25/18 15:53 01/25/18 19:25 Temperature 98.0 F 99.6 F Pulse Rate 89 94 H Respiratory Rate 18 18 Blood Pressure 128/78 135/70 Intake & Output 01/25/18 01/26/18 01/26/18 18:59 06:59 18:59 Intake Total 1000 / 1000 Balance 1000 / 1000 Intake: IV 1000 / 1000 LR 1000 mL Inj 1,000 ML @ 84 1000 / 1000 mls/hr IV.CONT .[id number] [facility] Rx# :[id number] Result Diagrams: 01/23/18 05:35 Objective Remarks: General: Alert, well appearing, in no acute distress Skin: Warm and dry HEENT: Atraumatic. Moist mucus membranes Cardiac: Regular rate and rhythm without murmur Pulmonary: No increased work of breathing. Clear to auscultation bilaterally with good air movement. Abdominal: Soft, minimal tenderness. uterus firm and below the umbilicus. Extremities: 2+ pedal pulses, mild b/l, symmetrical edema, no calf tenderness Medications and IVs: Active Medications Acetaminophen (Tylenol) 650 mg PO Q6H PRN PRN Reason: SEE DOSE INSTRUCTIONS Last Admin: 01/25/18 23:48 Dose: 650 mg Diphenhydramine HCl (Benadryl) 25 mg PO Q6H PRN PRN Reason: ITCHING Sodium Chloride (Ns Inj) 500 mls @ 1,000 mls/hr IV.SIG UNSCH PRN PRN Reason: SEE LABEL COMMENTS Sodium Chloride (Ns Inj) 1,000 mls @ 100 mls/hr IV.CONT .Q10H PRN PRN Reason: SEE LABEL COMMENTS Oxytocin (Pitocin 30 Units/Ns 500 Ml Premix) 30 units in 500 mls @ 100 mls/hr IV.SIG UNSCH PRN PRN Reason: Heavy bleeding Ibuprofen (Motrin) 800 mg PO Q8H PRN PRN Reason: SEE DOSE INSTRUCTIONS Last Admin: 01/26/18 08:28 Dose: 800 mg Mineral Oil (Muri-Lube Oil) 10 ml TOPICAL UNSCH PRN PRN Reason: PRN perineal massage Naloxone HCl (Narcan Inj) 0.1 mg IV.PUSH Q2M PRN PRN Reason: for opiate reversal Ondansetron HCl (Zofran Inj) 4 mg IV.PUSH Q6H PRN PRN Reason: NAUSEA OR VOMITING Last Admin: 01/25/18 17:09 Dose: 4 mg Oxycodone/Acetaminophen (Percocet 5/325 Mg) 1 tab PO Q6H PRN PRN Reason: SEE DOSE INSTRUCTIONS Oxycodone/Acetaminophen (Percocet 5/325 Mg) 2 tab PO Q6H PRN PRN Reason: SEE DOSE INSTRUCTIONS Last Admin: 01/26/18 08:28 Dose: 2 tab Senna/Docusate Sodium (Jaycee-Colace) 2 tab PO Q12H PRN PRN Reason: CONSTIPATION Last Admin: 01/26/18 08:28 Dose: 2 tab Simethicone (Mylicon Chew) 80 mg PO Q8H PRN PRN Reason: ABDOMINAL PAIN Stop: 01/26/18 23:59 Last Admin: 01/25/18 19:57 Dose: 80 mg Sodium Chloride (Ns Flush) 2 ml IV.FLUSH PRN PRN PRN Reason: FLUSH AFTER USING IV ACCESS Sodium Chloride (Ns Flush) 2 ml IV.FLUSH BID [facility] Last Admin: 01/25/18 22:39 Dose: Not Given Zolpidem Tartrate (Ambien) 5 mg PO HS PRN PRN Reason: INSOMNIA Assessment and Plan - Diagnosis (1) 41 weeks gestation of Code(s): Z3A.41 - 41 weeks gestation of Status: Acute (2) Post-dates Code(s): O48.0 - Post-term Status: Acute - Plan 28y/o female who delivered at 41.0 weeks who is POD#4 s/p with emesis x4 yesterday, but now tolerating p.o. and had a bowel movement yesterday. Physical exam is benign with AFVSS. 1. POD#4 from -Continue routine care. -Percocet and Motrin PRN pain. Advised pt to stay on top of pain control. She had been switched to IV pain medicine yesterday due to her emesis, but was switched back this morning because she is now tolerating PO again. -Encouraged OOB/ambulation. Advised pelvic rest for 6 wks. Will need a f/u appt. in 1 wk for incision check. -Pt plans to defer decision on contraception until she meets with her PCP Emesis, improved today thus far -KUB showed normal bowel gas pattern -Received suppository and had small BM afterwards -Received Miralax x2 after her episodes of emesis -Discussed ambulation and hydration Anticipate discharge home later today Care was discussed with Dr. Arriola
[2018-01-26 09:15] VITALS: BP 117/69; PULSE 79; RESP 16; TEMP 97.8; O2SAT 100
[2018-01-26] MEDS ORDERED: Diphtheria/Tetanus/Pertussis Vaccine Inj 0.5 ML Syringe IM ONE (16:00)
== END 2018-01-26 16:27 | disposition home or self-care (01) ==
LOC: H2E 05:50 → H1EA 01-22 09:00
PROVIDERS: ADMIT Obstetrics & Gynecology; ATTEND Obstetrics & Gynecology